=== PATIENT | female | born 1980 | race African-American/Black ===

== ENCOUNTER 2019-04-25 14:08 | Emergency (ER) | payer BC, MEDICAID ==
[~2019-04-25] VITALS: Ht 170.2 cm; Wt 70.3 kg
[2019-04-25 14:13] VITALS: Ht 170.2 cm; Wt 70.3 kg
[2019-04-25 15:14] LABS: PLATELET COUNT 293 x10^3mcL (130-400); RED CELL DISTRIBUTION WIDTH 13.1 % (11.5-14.5)
[2019-04-25 15:23] LABS: CALCIUM 10.4 mg/dL (8.5-10.1); CARBON DIOXIDE 21.6 mmol/L (21-32); CREATININE SERUM 1.5 mg/dL (0.6-1.0); POTASSIUM SERUM 3.7 mmol/L (3.5-5.1)
[2019-04-25 15:28] LABS: ALBUMIN 4.5 g/dL (3.4-5.0); BILIRUBIN TOTAL 0.6 mg/dL (0.20-1.00)
[2019-04-25 15:29] LABS: BAND NEUTROPHIL 3 % (0-10); BASOPHIL 0 % (0-2); METAMYELOCTE 1 % (0-2); MONOCYTE 5 % (0-7); SEGMENTED NEUTROPHILS 88 % (37-75); TOTAL PROTEIN, SERUM 8.5 g/dL (6.4-8.2)
[2019-04-25 15:31] LABS: rbc morphology (normal/abnorm) NORMAL (NORMAL)
[2019-04-25 16:38] LABS: UA SPECIFIC GRAVITY >=1.030 (1.005-1.035); microscopic required? YES; urine erythrocyte NEGATIVE (NEGATIVE)
[2019-04-25 21:16] LABS: AMPHETAMINE QUAL UR NONE DETECTED (See below)
[2019-04-25 22:06] VITALS: BP 128/82
== END 2019-04-25 22:06 | disposition home or self-care (01) ==
LOC: ED 14:08
PROVIDERS: Emergency Medicine; Student in an Organized Health Care Education/Training Program
DX: D72.829 Elevated white blood cell count, unspecified (principal); N28.1 Cyst of kidney, acquired; F12.90 Cannabis use, unspecified, uncomplicated; R10.13 Epigastric pain; R11.2 Nausea with vomiting, unspecified; I10 Essential (primary) hypertension; Z88.6 Allergy status to analgesic agent
CPT/HCPCS: J0696; J0780; J2270; J3490; J7030; J7060; Q0092; Q0162; Q9967